=== PATIENT | female | born 1980 | race Caucasian/White ===

== ENCOUNTER 2016-07-02 13:38 | Day surgery (SDC) | payer MEDICARE ==
[~2016-07-02 13:38] MED LIST: DIPRIVAN 200 MG/20 ML IV ONE; Kenalog-40 IM ONE; Lactated Ringers 1,000 ML IV ONE; Lactated Ringers 1,000 ML IV SCH; Sensorcaine 0.25% 10 ML IJ ONE
[2016-07-02 15:19] VITALS: BP 109/73; PULSE 79; O2SAT 94
[2016-07-02] MEDS ORDERED: XYLOCAINE 1% HCL 20 ML MDV ONE (16:20)
--- NOTE | 2016-07-02 19:19 | XRAY ---
Indication: Left SI injection. Intraoperative fluoroscopy was provided for 25 seconds. 3 digital spot images submitted for interpretation demonstrates posterior spinal needle with the tip projecting over the left SI joint superiorly. Small amount of contrast injected for needle tip placement. Correlate with intraoperative findings/report.
--- NOTE | 2016-07-03 15:13 | XRAY ---
23 seconds fluoroscopy time in surgery for left SI joint injection.
== END 2016-07-02 15:15 | disposition home or self-care (01) ==
LOC: SDC-PAIN 13:38
PROVIDERS: ATTEND Pain Medicine Interventional Pain Medicine
DX: M54.5 Low back pain (principal); M25.569 Pain in unspecified knee; M46.1 Sacroiliitis, not elsewhere classified; Z79.891 Long term (current) use of opiate analgesic
CPT/HCPCS: 01992; 27096; 72020; 77003; J2704; J3301

== ENCOUNTER 2019-10-05 10:05 | Day surgery (SDC) | payer MEDICARE ==
[2019-10-05] MEDS ORDERED: Ketamine HCl 50 MG/ML IV ONE (10:06)
[2019-10-05] MEDS ORDERED: DIPRIVAN 200 MG/20 ML IV ONE (10:06)
[2019-10-05] MEDS ORDERED: Marcaine 0.5% SDV 10 ML IM ONE (10:06)
[2019-10-05] MEDS ORDERED: Depo-Medrol 40 MG/ML IM ONE (10:06)
--- NOTE | 2019-10-05 13:06 | XRAY ---
Indication: Bilateral SI joint injection. Intraoperative fluoroscopy was provided for 24 seconds. 4 digital spot images submitted for interpretation demonstrate posterior needle tip projecting over the inferior left and right SI joints. Correlate with intraoperative findings/report.
--- NOTE | 2019-10-05 13:23 | XRAY ---
24 seconds fluoroscopy time in surgery for bilateral SI joint injections.
[2019-10-05] MEDS ORDERED: Lactated Ringers 1,000 ML IV ONE (14:47)
== END 2019-10-05 11:59 | disposition home or self-care (01) ==
LOC: SDC-PAIN 10:05
PROVIDERS: ATTEND Psychiatry & Neurology Pain Medicine
DX: M46.1 Sacroiliitis, not elsewhere classified (principal); M79.7 Fibromyalgia; F41.8 Other specified anxiety disorders; Z79.899 Other long term (current) drug therapy
CPT/HCPCS: 72202; 77002; 84703; G0260; 27096; J1030; J2704